=== PATIENT | male | born 1980 | race Caucasian/White ===

== ENCOUNTER 2018-08-25 14:19 | Emergency (ER) | payer OTHER ==
--- NOTE | 2018-08-25 16:36 | ED ---
Lower Extremity - HPI Summary HPI Summary: Patient is a 38-year-old male who presents emergency department for left ankle injury that occurred today. Patient states he was walking his dog when he inverted his left ankle. Able to ambulate with pain. Denies numbness, tingling or weakness. Symptoms are mild in severity. Walking makes symptoms worse. Rest makes symptoms better. - History of Current Complaint Chief Complaint: EDExtremityLower Stated Complaint: LEFT ANKLE INJURY PER PT Time Seen by Provider: 08/25/18 16:30 Hx Obtained From: Patient Pain Intensity: 5 - Allergies/Home Medications Allergies/Adverse Reactions: Allergies Allergy/AdvReac Type Severity Reaction Status Date / Time bee pollen Allergy Swelling Verified 08/25/18 14:30 PMH/Surg Hx/FS Hx/Imm Hx Previously Healthy: Yes - Surgical History Surgery Procedure, Year, and Place: r ankle fx in 2007 Infectious Disease History: No Infectious Disease History: Denies: Traveled Outside the [place] in Last 30 Days - Family History Known Family History: Positive: Non-Contributory - Social History Occupation: Employed Full-time Lives: Alone Alcohol Use: Occasionally Substance Use Type: Reports: Marijuana Smoking Status (MU): Never Smoked Tobacco Review of Systems Positive: Other - right ankle injury Negative: Weakness, Paresthesia, Numbness All Other Systems Reviewed And Are Negative: Yes Physical Exam Triage Information Reviewed: Yes Vital Signs On Initial Exam: Initial Vitals Temp Pulse Resp BP Pulse Ox 97.9 F 72 18 151/69 95 08/25/18 14:27 08/25/18 14:27 08/25/18 14:27 08/25/18 14:27 08/25/18 14:27 Vital Signs Reviewed: Yes Appearance: Positive: Well-Appearing - Pt. sitting on bed in NAD. Skin: Positive: Warm, Dry Head/Face: Positive: Normal Head/Face Inspection Eyes: Positive: Normal, EOMI Musculoskeletal: Positive: Other - MIld edema and pain over the left malleolus. Acchilles tendon intact. GOod pedal pulse. No breaks in skin. No proximal tib/ fib or knee pain. Neurological: Positive: Normal, CN Intact II-III Psychiatric: Positive: Normal, Affect/Mood Appropriate Diagnostics - Vital Signs Vital Signs Temp Pulse Resp BP Pulse Ox 08/25/18 14:27 97.9 F 72 18 151/69 95 - Laboratory Lab Statement: Any lab studies that have been ordered have been reviewed, and results considered in the medical decision making process. Lower Extremity Course/Dx - Course Course Of Treatment: Patient presenting with minor ankle injury. X-ray shows soft tissue swelling without fracture dislocation, reading per radiology. Patient present a substance within the continue to wear for comfort. To ice and elevate. Tylenol or Motrin for pain as directed. Will follow-up with PCP if pain persists. Patient understands and agrees with plan. - Diagnoses Differential Diagnosis/HQI/PQRI: Positive: Fracture (Closed), Sprain, Strain Provider Diagnoses: Ankle sprain Discharge - Sign-Out/Discharge Documenting (check all that apply): Patient Departure Patient Received Moderate/Deep Sedation with Procedure: No - Discharge Plan Condition: Good Disposition: HOME Patient Education Materials: Ankle Sprain (ED) Referrals: Kiet Louis MD [Primary Care Provider] - Additional Instructions: Follow up with PCP if pain persist Ice and elevate Tylenol or Motrin for pain as directed Return to ER if symptoms change or worsen - Billing Disposition and Condition Condition: GOOD Disposition: Home
[2018-08-25 17:40] VITALS: BP 133/95
== END 2018-08-25 17:39 | disposition home or self-care (01) ==
LOC: ED 14:19
DX: S93.402A Sprain of unspecified ligament of left ankle, initial encounter (principal); Y93.K1 Activity, walking an animal; M25.472 Effusion, left ankle
CPT/HCPCS: 99281

== ENCOUNTER → 2018-10-01 07:40 | Day surgery (SDC) | payer OTHER ==
--- NOTE | 2018-09-29 10:20 | HP ---
PREOPERATIVE HISTORY AND PHYSICAL: DATE OF SURGERY/ADMISSION: 10/01/18 DATE OF OFFICE VISIT/ENCOUNTER: 09/16/18 ATTENDING SURGEON: Azra Sepulveda MD* (dictated by DAR Ugalde). PROCEDURE: Excision mass, right ring finger. HISTORY OF PRESENT ILLNESS: This is a 38-year-old male who complains of a lump on his right ring finger that has been present for approximately 2 months. It has become increasingly bothersome, especially when he info analyst things. He does not recall any injury. He denies any associated numbness or tingling. He would like to have the mass removed. PAST MEDICAL HISTORY: Unremarkable. PAST SURGICAL HISTORY: None. MEDICATIONS: 1. Ibuprofen 600 mg 3 times a day p.r.n. 2. Naproxen 500 mg b.i.d. p.r.n. ALLERGIES: No known drug allergies. The patient is allergic to BEE STINGS. FAMILY HISTORY: Heart disease, stroke, cancer. 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 He denies tobacco use. He does smoke marijuana on occasion and drinks alcohol on occasion. REVIEW OF SYSTEMS: Negative for general, cephalic, cardiovascular, respiratory , GI, , other musculoskeletal, integumentary, endocrine, neurologic, and hematologic symptoms. Infectious Disease: Negative for MRSA, hepatitis C, HIV. PHYSICAL EXAM: GENERAL: Well-developed, well-nourished 38-year-old male, in no acute distress. VITAL SIGNS: Height 5 feet 9 inches, weight 175 pounds, pulse rate 83, blood pressure 120/76. HEENT: Normocephalic, atraumatic. Pupils are equal, round, and reactive to light and accommodation. Extraocular movements are intact. Throat is clear. NECK: Supple. No palpable lymph nodes. PULMONARY: Lungs are clear to auscultation bilaterally. No wheezes, rales, or rhonchi. CARDIOVASCULAR: Regular rate and rhythm. S1, S2. No murmurs, rubs, or gallops. No edema. ABDOMEN: Positive bowel sounds. Soft, nontender. MUSCULOSKELETAL: On exam of his right hand, he has a small cystic mass overlying the flexor tendon of the ring finger. Negative Tinel's sign. He can slowly flex and extend his fingers and neurovascular function is intact. Skin is intact. There is no triggering. NEUROLOGICAL: Alert and oriented x3. Cranial nerves II through XII are intact. Sensation is intact to light touch. IMAGING STUDIES: X-rays AP, lateral, and oblique of the right hand showed no bony abnormalities. IMPRESSION: Gangrene cyst, right ring finger. PLAN: The patient is scheduled to undergo an excision mass, right ring finger with Dr. Sepulveda on 10/01/18. He will return to the office 10 days postop for followup and suture removal. A prescription for Ultracet was e-scribed to the patient's pharmacy for postoperative pain management. DAR UGALDE [id number]/[facility] #: [id number] MTDArlet
[~2018-10-01 07:40] MED LIST: Buffered Lidocaine 1% SYRIN* 1 ML/SYRINGE INTRADERM ONE; Dexamethasone TAB* 4 MG ONE; Dexamethasone TAB* 4 MG PO ONE; DiMENhydriNATE IV* 50 MG/ML VIAL IV PUSH PRN; Famotidine IV* 10 MG/ML 2 ML (20 mg) IV ONE; Famotidine IV* 10 MG/ML 2 ML (20 mg) ONE; KETAMINE HCL* 50 MG/ML 10 ML VIAL ONE; Ketorolac INJ* 30 MG/ML 1 ML VIAL ONE; Lactated Ringers 1000 ML Bag* 1,000 ML IV SCH; Lidocaine 1% INJ* 10 MG/ML 30 ML SDV ONE; Lidocaine 2% PF * 5 ML VIAL ONE; Midazolam* 1 MG/ML 5 ML VIAL (5 MG) ONE; Morphine 4 MG/ML VIAL (1 ml) 4 MG/ML VIAL IV PRN; Naloxone* 0.4 MG/ML 1 ML VIAL IV PRN; Ondansetron ODT TAB* 4 MG ONE; Ondansetron TAB* 4 MG PO ONE; PROCHLORPERAZINE INJ 5 MG/ML 2 ML VIAL IV PRN; Propofol* 10 MG/ML 20 ML BTL ONE; fentaNYL* 50 MCG/ML 2 ML VIAL (100 MCG VIAL) IV PRN; fentaNYL* 50 MCG/ML 2 ML VIAL (100 MCG VIAL) ONE; oxyCODONE/Acetamin 5/325 MG* TAB PO PRN
[2018-10-01 11:32] VITALS: BP 135/88
--- NOTE | 2018-10-01 13:01 | OP ---
CC: Dr. Sepulveda OPERATIVE PROCEDURE: DATE OF OPERATION: 10/01/18 DATE OF : 78 SURGEON: Azra Sepulveda MD SCIENCE [employer]AC[employer] MEMBER: DAR Ugalde ANESTHESIA: Local MAC. PRE-OP DIAGNOSIS: Right ring finger mass. POST-OP DIAGNOSIS: Right ring finger mass. OPERATIVE PROCEDURE: Removal of right ring finger mass. ESTIMATED BLOOD LOSS: Zero. TOURNIQUET TIME: About 10 minutes. INDICATION FOR PROCEDURE: Feliciano is a 38-year-old male who has a bothersome mass on the volar aspect o f his right ring finger at the MP flexion crease. He presents for removal. Clinically, it is a gang lion cyst. DESCRIPTION OF PROCEDURE: The patient was brought to the operating room, was given a sedation anesth etic and a local infiltration of 10 cc of 1% plain lidocaine as a digital block to the right ring fin slade. The skin of his right hand and forearm was prepped and draped in the usual sterile fashion. Th e hand and forearm were exsanguinated and the tourniquet elevated to 250 mmHg. A transverse incision was made, centered over the mass in the MP flexion and we dissected through the subcutaneous tissue down to the flexor tendon sheath. There was a small ganglion cyst on the sheath. It was removed wit h a small portion of flexor tendon sheath. The flexor tendons were carefully protected as were the di gital neurovascular bundles. The wound was irrigated and the skin edges reapproximated with 4-0 nylo n suture. The wound was dressed with Xeroform, 4x4, Webril, and Coban. The patient tolerated the pr ocedure well and was brought to the recovery room in good condition. [id number]/[facility] #: [id number]
== END | disposition home or self-care (01) ==
LOC: OR 07:40
PROVIDERS: ATTEND Orthopaedic Surgery
DX: M67.441 Ganglion, right hand (principal)
CPT/HCPCS: 88304; A9270-GY; J1885; J2250; J2704; J3010; J8540